=== PATIENT | male | born 1945 | race Caucasian/White ===

== ENCOUNTER 2021-09-21 05:37 | Outpatient (CLI) | payer MEDICARE ==
[~2021-09-21] VITALS: Ht 172.7 cm; Wt 114.3 kg
[~2021-09-21 05:37] MED LIST: ARGI500C2 PO; ASPI325T32 PO; BISA5TAB20; BUPR150T6 PO; BUPR300T; C250T; CLD600T; E400C; MELO-195 PO; METO-352 PO; MTC10T; MULT1TAB63; OMEP40CA36 PO; OMG1KC PO; PRD10T; PRED5TAB PO; SULF1TAB38; TRM50T
[2021-09-21] MEDS ORDERED: BUPR100T8 PO (14:38)
[2021-09-21] MEDS ORDERED: SILD100T67 PO (14:38)
[2021-09-21] MEDS ORDERED: OMEP40CA6 PO (14:38)
== END 2021-09-21 16:19 | disposition home or self-care (01) ==
LOC: PREOP 05:37
PROVIDERS: ATTEND Surgery
DX: Z01.818 Encounter for other preprocedural examination (principal)

== ENCOUNTER → 2021-09-24 | Outpatient (CLI) | payer MEDICARE ==
[~2021-09-24] MED LIST changes: +BUPR100T8 PO; +OMEP40CA6 PO; +SILD100T67 PO
== END ==
LOC: LAB FS 10:39
PROVIDERS: ATTEND Surgery
DX: Z01.812 Encounter for preprocedural laboratory examination (principal); Z20.822 Contact with and (suspected) exposure to COVID-19
CPT/HCPCS: 87635

== ENCOUNTER 2021-09-28 09:33 | Day surgery (SDC) | payer MEDICARE ==
[~2021-09-28] VITALS: Ht 172.7 cm; Wt 114.3 kg
[2021-09-28] MEDS ORDERED: LACTATED RINGERS 1,000 ML IV STA (09:36)
[2021-09-28] MEDS ORDERED: HURRICAINE EXT TUBE (BENZOCAINE) XX PRN (09:45)
[2021-09-28 10:00] VITALS: BP 156/90
--- NOTE | 2021-09-28 10:32 | Progress Note-Pre Operative ---
Pre-Operative Progress Note H&P Reviewed The H&P was reviewed, patient examined and no changes noted. Date Seen by Provider: Sep 28, 2021 Time Seen by Provider: 10:32 Date H&P Reviewed: Sep 28, 2021 Time H&P Reviewed: 10:32 Pre-Operative Diagnosis: gerd, screening colon MARILEE PATEL DO Sep 28, 2021 10:32
[2021-09-28] MEDS ORDERED: MIDAZOLAM 2 MG/2 ML (VERSED) VIAL ONE (11:37)
[2021-09-28] MEDS ORDERED: PROPOFOL INJECTION 50 ML IV ONE (11:38)
--- NOTE | 2021-09-28 12:32 | Discharge Inst-Simple/Standard ---
Discharge Inst-Standard Patient Instructions/Follow Up Plan of Care/Instructions/FU: 2 weeks Kristen Activity as Tolerated: Yes Discharge Diet: Regular Diet MARILEE PATEL DO Sep 28, 2021 12:32
--- NOTE | 2021-09-28 12:34 | Progress Note-Post Operative ---
Post-Operative Progess Note Surgeon (s)/Big Data Solutions Architect (s) Surgeon MARILEE PATEL DO Big Data Solutions Architect: na Pre-Operative Diagnosis gerd, screening colon Post-Operative Diagnosis small hiatal hernia, colon polpys, anal tag Procedure & Operative Findings Date of Procedure 09/28/21 Procedure Performed/Findings egd c biopsies, colonoscopy c snare polypectomy x 3 Anesthesia Type per cider press operator Estimated Blood Loss Estimated blood loss (mL): none Specimens/Packing Specimens Removed colon polyps MARILEE PATEL DO Sep 28, 2021 12:34
[2021-09-28 12:35] VITALS: BP 162/86
[2021-09-28 12:40] VITALS: BP 162/83
--- NOTE | 2021-09-28 13:00 | Anesthesia-General Post-Op ---
MAC Patient Condition Mental Status/LOC: Same as Preop Cardiovascular: Satisfactory Nausea/Vomiting: Absent Respiratory: Satisfactory Pain: Controlled Complications: Absent Post Op Complications Complications None Follow Up Care/Instructions Patient Instructions None needed. Anesthesiology Discharge Order Discharge Order Patient is doing well, no complaints, stable vital signs, no apparent adverse anesthesia problems. No complications reported per nursing. SAUL HICKS CRNA Sep 28, 2021 13:00
[2021-09-28 13:10] VITALS: BP 159/84
[2021-09-28 13:50] VITALS: BP 159/84
--- NOTE | 2021-09-28 17:59 | OPERATIVE REPORT ---
DATE OF SERVICE: 09/28/2021 PREOPERATIVE DIAGNOSES: Screening colonoscopy and gastroesophageal reflux disease. POSTOPERATIVE DIAGNOSES: Small hiatal hernia, colon polyps, and anal tag. PROCEDURES PERFORMED: EGD with biopsies and colonoscopy with snare polypectomy x3. SURGEON: Marilee Peterson DO. ANESTHESIA: Per MAGNET MAKER. ESTIMATED BLOOD LOSS: None. COMPLICATIONS: None. INDICATIONS FOR PROCEDURE: The patient is a 76-year-old male needing colonoscopy for screening purposes and having GERD and needs EGD. He understands the risks and benefits and wishes to proceed. Consent was signed in the chart. DESCRIPTION OF PROCEDURE: The patient was taken to the endoscopy suite and placed in a left lateral recumbent position. A timeout was performed. The scope was inserted in mouth, down the esophagus, stomach and into the duodenum without difficulty. No polyps, masses or ulcerations within the duodenum. Scope was slowly retracted back into the stomach, where it was further insufflated. No polyps, masses or ulcerations. Biopsy of the antrum was obtained. Scope was retroflexed noting a small hiatal hernia and no other pathology. Scope was returned to its normal position, slowly withdrawn to the distal esophagus, which had normal appearance. Biopsy of the GE junction was obtained. Scope was then slowly retracted back noting no other pathology. Digital rectal exam was performed noting an anal tag. No polyps, masses or ulcerations. Scope was inserted in the rectum and advanced all the way to cecum with minimal difficulty. Prep was adequate. Scope was slowly retracted back. No polyps, masses or ulcerations within the ascending colon. In the transverse colon, larger polyp was present, which snare polypectomy was performed. This was obtained for pathology. Scope was then continuously and slowly retracted back. In the descending colon, another polyp was present, which snare polypectomy was performed. Scope was then continuously and slowly retracted back. In the sigmoid colon, there was another polyp, which snare polypectomy was performed. Throughout the left colon, some minimal diverticulosis was present. Scope was then continuously and slowly retracted back in the rectum, where it was also retroflexed noting no other pathology. Scope was returned to its normal position, slowly withdrawn until completely removed. The patient tolerated the procedure well without any complications and taken to the recovery room in a stable condition. RECOMMENDATIONS: The patient will need a repeat colonoscopy if benefits outweigh the risks in five years. Any issues before that will be seen at that time. With diverticulosis, I would recommend a high fiber diet. We will await biopsy results of the upper GI to possibly change omeprazole to Protonix if symptoms are not under control. Job ID: [id number] DocumentID: [id number] Dictated Date: 09/28/2021 12:38:05 System Development Engineer Date: 09/28/2021 17:58:51 Dictated By: MARILEE PETERSON DO
== END 2021-09-28 13:50 | disposition home or self-care (01) ==
LOC: ENDO 09:33
PROVIDERS: ATTEND Surgery
DX: Z12.11 Encounter for screening for malignant neoplasm of colon (principal); K63.5 Polyp of colon; K44.9 Diaphragmatic hernia without obstruction or gangrene; K64.4 Residual hemorrhoidal skin tags; K57.30 Diverticulosis of large intestine without perforation or abscess without bleeding; K21.9 Gastro-esophageal reflux disease without esophagitis; I10 Essential (primary) hypertension; Z79.02 Long term (current) use of antithrombotics/antiplatelets; Z79.899 Other long term (current) drug therapy; Z79.82 Long term (current) use of aspirin